=== PATIENT | female | born 1985 | race Hispanic/Latino ===

== ENCOUNTER 2021-09-29 19:24 | Inpatient (IN) | payer MEDICAID, OTHER, SELFPAY ==
[2021-09-29 19:48] VITALS: BMI 34.3
[2021-09-29] MEDS ORDERED: Ibuprofen 800 MG TAB PO PRN (20:57)
[2021-09-29] MEDS ORDERED: hydrALAZINE 20 MG/ML VIAL SLOW IVP PRN (20:57)
[2021-09-29] MEDS ORDERED: Diphenoxylate HCl/Atropine Tablet PO PRN (20:57)
[2021-09-29] MEDS ORDERED: Acetaminophen 500 MG TAB PO PRN (20:57)
[2021-09-29] MEDS ORDERED: Lidocaine 1% (PF) 30 ML VIAL SC PRN (20:57)
[2021-09-29] MEDS ORDERED: Methylergonovine 0.2 MG/ML VIAL IM PRN (20:57)
[2021-09-29] MEDS ORDERED: Misoprostol 200 MCG TAB PR PRN (20:57)
[2021-09-29] MEDS ORDERED: HYDROcodone/Acetaminophen 5/325 mg Tablet PO PRN (20:57)
[2021-09-29] MEDS ORDERED: Butorphanol Tartrate 1 MG/ML VIAL SLOW IVP PRN (20:57)
[2021-09-29] MEDS ORDERED: Carboprost 250 MCG/ML AMP IM PRN (20:57)
[2021-09-29] MEDS ORDERED: Ondansetron PF 4 MG/2 ML Vial IVP PRN (20:57)
[2021-09-29] MEDS ORDERED: Promethazine HCl 25 MG/ML VIAL IM PRN (20:57)
[2021-09-29] MEDS: Misoprostol 100 MCG TAB PO SCH (21:43)
[2021-09-29] MEDS ORDERED: Misoprostol 100 MCG TAB ONE (21:45)
[2021-09-29] MEDS: Lactated Ringer's 1,000 ML IV SCH (22:00)
[2021-09-29 22:16] LABS: Glucose 87 mg/dL (70-105)
[2021-09-29 22:20] LABS: Hemoglobin 13.5 g/dL (12.0-15.5); Mean Corpuscular HGB CONC 33.8 g/dL (32.0-36.0); Mean Corpuscular Hemoglobin 31.3 pg (27.0-33.0); Mean Corpuscular Volume 92.8 fl (81.6-98.3); Mean Platelet Volume 12.8 fl (7.4-10.4); Platelet Count 196 10x3/uL (150-450); RBC Distribution Width 13.8 % (11.5-14.5); Red Blood Cell (RBC) Count 4.31 10x6/uL (3.90-5.03)
[2021-09-29 22:42] LABS: Hep B Surf Ag Non-Reactive S/CO (NonReactive); Syphilis Antibody Nonreactive (Nonreactive); Syphilis Antibody Index 0.07 S/CO (<1.00 Non-Reactive)
[2021-09-29 22:44] LABS: HBSAg Index 0.16 S/CO (0-0.99)
[2021-09-30] MEDS: Misoprostol 100 MCG TAB PO SCH ×2 (05:28→05:41)
[2021-09-30] MEDS: Lactated Ringer's 1,000 ML IV SCH (05:28)
[2021-09-30] MEDS: NS w/ Oxytocin 30 units 500 ML IV SCH ×2 (05:30→14:37)
[2021-09-30] MEDS ORDERED: Bupivacaine 0.25% HCL 30 ML VIAL ONE (08:00)
[2021-09-30] MEDS ORDERED: Fentanyl 2 mcg/Bup 0.1% Cadd 100 ML ONE (08:11)
[2021-09-30] MEDS ORDERED: Ondansetron PF 4 MG/2 ML Vial IVP PRN ×2 (09:59→21:52)
[2021-09-30] MEDS ORDERED: Naloxone HCl 0.4 mg/ml Vial IVP PRN ×2 (09:59)
[2021-09-30] MEDS ORDERED: diphenhydrAMINE 50 MG/ML VIAL IVP PRN (09:59)
[2021-09-30] MEDS ORDERED: ePHEDrine Sulfate 50 MG/10 ML VIAL SLOW IVP PRN (09:59)
[2021-09-30] MEDS ORDERED: Hydrocerin (Eucerin) Cream 120 gm Jar TOP PRN (09:59)
[2021-09-30] MEDS ORDERED: Promethazine HCl 25 MG/ML VIAL IM PRN ×2 (09:59→21:52)
[2021-09-30] MEDS ORDERED: Acetaminophen 325 MG TAB PO PRN (09:59)
[2021-09-30] MEDS ORDERED: Communication Order-Pharmacy FS SCH (10:00)
[2021-09-30] MEDS ORDERED: Fentanyl 2 mcg/Bupivacaine 0.1% Cassette 100 ML EPIDURAL SCH (10:00)
[2021-09-30] MEDS ORDERED: Lactated Ringer's 500 ML IV PRN (10:17)
[2021-09-30] MEDS ORDERED: PROPOFOL 20 ML ONE (16:59)
[2021-09-30] MEDS ORDERED: PROPOFOL 0 ML ONE (16:59)
[2021-09-30] MEDS ORDERED: Fentanyl 100 MCG/2 ML VIAL ONE (16:59)
[2021-09-30] MEDS ORDERED: Phenylephrine 40 MG/NS 250 ML 250 ML ONE (17:03)
[2021-09-30] MEDS ORDERED: Labetalol HCl 100 MG/20 ML VIAL ONE (17:13)
[2021-09-30] MEDS ORDERED: Tranexamic Acid 1,000 MG/10 ML VIAL ONE (17:13)
[2021-09-30] MEDS ORDERED: Tranexamic Acid 1,000 MG in Sodium Chloride 0.9% 250 ML 100 ML IVPB SCH ×2 (17:15→17:30)
[2021-09-30] MEDS ORDERED: Azithromycin 500 MG in Sodium Chloride 0.9% 250 ML 250 ML IVPB SCH (17:30)
[2021-09-30] MEDS ORDERED: ceFAZolin 2 GM/Dextrose 50 ML 2 GM in Premix Bag 1 BAG IVPB SCH (18:00)
[2021-09-30] MEDS ORDERED: metroNIDAZOLE 500 MG in Premix Bag 1 BAG IVPB SCH (18:30)
[2021-09-30] MEDS ORDERED: Bisacodyl 10 MG SUPP PR PRN (21:52)
[2021-09-30] MEDS ORDERED: Benzocaine-Menthol 82.5 ML CAN TOP PRN (21:52)
[2021-09-30] MEDS ORDERED: Lanolin Ointment 7 GM TUBE TOP PRN (21:52)
[2021-09-30] MEDS ORDERED: Boostrix 0.5 ML (Tdap) VIAL IM ONE (21:52)
[2021-09-30] MEDS ORDERED: Milk Of Magnesia 30 ML UDCUP PO PRN (21:52)
[2021-09-30] MEDS ORDERED: diphenhydrAMINE 25 MG CAP PO PRN (21:52)
[2021-09-30] MEDS ORDERED: hydrALAZINE 20 MG/ML VIAL SLOW IVP PRN (21:52)
[2021-09-30] MEDS ORDERED: Docusate 100 MG CAP PO SCH (22:15)
[2021-09-30] MEDS ORDERED: Ferrous Sulfate 325 MG TAB PO SCH (22:15)
[2021-09-30] MEDS: Ibuprofen 800 MG TAB PO SCH (22:40)
[2021-09-30] MEDS: HYDROcodone/Acetaminophen 5/325 mg Tablet PO PRN (22:41)
[2021-10-01] MEDS: metroNIDAZOLE 500 MG in Premix Bag 1 BAG IVPB SCH ×3 (01:15→16:04)
[2021-10-01 03:28] LABS: Hemoglobin 11.1 g/dL (12.0-15.5); Mean Corpuscular HGB CONC 33.9 g/dL (32.0-36.0); Mean Corpuscular Volume 91.3 fl (81.6-98.3); Mean Platelet Volume 12.7 fl (7.4-10.4); Platelet Count 166 10x3/uL (150-450); RBC Distribution Width 13.7 % (11.5-14.5); Red Blood Cell (RBC) Count 3.58 10x6/uL (3.90-5.03); White Blood Cell (WBC) Count 9.8 10x3/uL (3.5-10.5)
[2021-10-01] MEDS: Ibuprofen 800 MG TAB PO SCH ×2 (06:31→14:20)
[2021-10-01] MEDS: ceFAZolin 2 GM/Dextrose 50 ML 2 GM in Premix Bag 1 BAG IVPB SCH ×2 (06:32→14:21)
[2021-10-01] MEDS ORDERED: Ferrous Sulfate 325 MG TAB PO SCH (08:00)
[2021-10-01] MEDS ORDERED: Prenatal Vitamin 1 TAB PO SCH (09:00)
[2021-10-01] MEDS ORDERED: Docusate 100 MG CAP PO SCH (09:00)
[2021-10-01 11:20] VITALS: BP 104/55; TEMP 98.1
[2021-10-01] MEDS: HYDROcodone/Acetaminophen 5/325 mg Tablet PO PRN (14:19)
== END 2021-10-01 18:25 | disposition home or self-care (01) | DRG 806 ==
LOC: CSHLD 19:24 → CSHPED 09-30 21:25
PROVIDERS: ADMIT Family Medicine; ATTEND Family Medicine
PROC: 10E0XZZ Delivery of Products of Conception, External Approach (ICD-10-PCS; principal; 2021-09-30)
PROC: 3E0P7VZ Introduction of Hormone into Female Reproductive, Via Natural or Artificial Opening (ICD-10-PCS; 2021-09-30)
PROC: 10907ZC Drainage of Amniotic Fluid, Therapeutic from Products of Conception, Via Natural or Artificial Opening (ICD-10-PCS; 2021-09-30)
PROC: 0UC97ZZ Extirpation of Matter from Uterus, Via Natural or Artificial Opening (ICD-10-PCS; 2021-09-30)
DX: O24.420 Gestational diabetes mellitus in childbirth, diet controlled (principal); O72.2 Delayed and secondary postpartum hemorrhage; Z37.0 Single live birth; Z3A.39 39 weeks gestation of pregnancy; E66.09 Other obesity due to excess calories; O99.214 Obesity complicating childbirth
CPT/HCPCS: 36415; 36416; 51702; 82947; 85027; 86780; 86850; 86900; 86901; 87340; 99152; J0456; J0690; J2210; J2405; J2590; J2704; J3010; J7050; J7120; S0020